=== PATIENT | female | born 1970 | race African-American/Black ===

== ENCOUNTER 2021-03-20 05:42 | Emergency (ER) | payer MEDICARE, MEDICAID ==
[~2021-03-20] VITALS: Ht 165.1 cm; Wt 82.0 kg
[2021-03-20] MEDS ORDERED: IBUPROFEN 800MG TABLET PO ONE (07:00)
[2021-03-20] MEDS ORDERED: IBUP-2030 PO (08:08)
[2021-03-20 08:24] VITALS: BP 148/88
== END 2021-03-20 08:25 | disposition home or self-care (01) ==
LOC: ER 05:42
DX: R51.9 Headache, unspecified (principal); M25.512 Pain in left shoulder; Z88.0 Allergy status to penicillin; Z98.890 Other specified postprocedural states
CPT/HCPCS: 71045; 99283